=== PATIENT | male | born 1935 | race Caucasian/White ===

== ENCOUNTER 2018-04-08 10:36 | Inpatient (IN) ==
[2018-04-08] MEDS ORDERED: 0.9 % SODIUM CHLORIDE 1,000 ML IV ONE (11:02)
[2018-04-08 11:28] LABS: Basophils # (Auto) 0.1 K/mcL (0.0-0.3); Basophils % (Auto) 0.1 % (0.0-2.0); Eosinophils # (Auto) 0.1 K/mcL (0.0-0.7); Eosinophils % (Auto) 0.1 % (0.0-7.0); Lymphocytes # (Auto) 67.4 K/mcL (1.5-4.8); Lymphocytes % (Auto) 80.3 % (15.5-49.0); Mean Cell Volume 85.2 fL (80.0-100.0); Mean Corpuscular HGB Conc 30.9 g/dL (31.0-36.0); Monocytes # (Auto) 8.8 K/mcL (0.1-0.9); Monocytes % (Auto) 10.5 % (1.0-12.0); Platelet Count 164 K/mcL (140-440); RBC 4.72 M/mcL (4.50-5.90); Red Cell Distribution Width 19.9 % (11.5-14.5)
--- NOTE | 2018-04-08 11:28 | Emergency Department Note ---
Male Urogenital HPI - General Chief complaint: Urogenital-Male Stated complaint: urinary retention Time Seen by Provider: 04/08/18 10:44 Source: patient Mode of arrival: ambulatory Limitations: no limitations - History of Present Illness HPI Narrative: This patient has not had a good urination in the last 3 or 4 days. He had colon cancer surgery earlier in March and his creatinine had time was 1.4. Today is 3.9 his BUN is 119. He certainly may be prerenal. His potassium was 6.0. He really has no other symptoms. - Related Data Home Medications Medication Instructions Recorded Confirmed Levothyroxine [Synthroid] 100 mcg PO DAILY 08/15/15 04/08/18 Lisinopril [Zestril] 40 mg PO DAILY 08/15/15 04/08/18 Allopurinol [Zyloprim] 100 mg PO HS 04/08/18 04/08/18 Brimonidine Tartrate/Timolol 1 drp BOTH EYES Q12H 04/08/18 04/08/18 [Combigan Eye Drops] Ferrous Sulfate [High Potency Iron] 65 mg PO QDAY 04/08/18 04/08/18 Furosemide [Lasix] 20 mg PO QDAY PRN 04/08/18 04/08/18 Metoprolol Tartrate [Lopressor] 50 mg PO QDAY 04/08/18 04/08/18 Multivit-Min/Iron/Vitamin K [Adult 1 each PO QDAY 04/08/18 04/08/18 Multivitamin-Iron Tablet] Potassium Gluconate 99 mg PO QDAY 04/08/18 04/08/18 Sodium Chloride Nasal [[place] Nasal] 1 spray JOVANA Q12HP 04/08/18 04/08/18 Zinc Acetate [Galzin] 25 mg PO QDAY 04/08/18 04/08/18 amLODIPine [Norvasc] 10 mg PO ONCE 04/08/18 04/08/18 diphenhydrAMINE HCL/ZINC ACET 1 gm TP QDAY PRN 04/08/18 04/08/18 [Itch Relief Cream] Allergies Allergy/AdvReac Type Severity Reaction Status Date / Time Penicillins Allergy Intermediate Rash Verified 04/08/18 10:41 Review of Systems All systems ED: reviewed and negative except as stated. Past Medical History - Past Medical History ON LICENSE OF [facility] Narrative: Medical History (Last Reviewed 02/10/18 @ 11:28 by Shell Woodall DO) Chronic lymphocytic leukemia (Acute) Sinusitis (Acute) Bronchitis (Acute) Medical history: Reports: cancer (colon, bladder), CHF, GERD, hypertension, kidney stones, other (pacemaker, colitis) Surgical history ED: Reports: appendectomy, cataract, cholecystectomy, pa cemaker/AICD, tonsillectomy - Social History smoking status: Former smoker Physical Exam Limitations: no limitations General appearance: alert Head: atraumatic Eye: Present: normal appearance ENT: normal exam Neck: Present: normal inspection Chest: Present: normal inspection Respiratory: Present: normal lung sounds bilaterally Cardiovascular: Present: regular rate, normal rhythm, normal heart sounds Abdominal: Present: soft. Absent: distention, tenderness Neurological: Present: alert Psychiatric: Present: normal affect Skin: Present: warm, dry, intact Course Vital Signs Temperature 96.5 F L 04/08/18 10:36 Pulse Rate 84 04/08/18 10:36 Respiratory Rate 18 04/08/18 10:36 Blood Pressure 111/56 04/08/18 10:36 Pulse Oximetry (%) 98 04/08/18 10:36 Temperature 96.5 F L 04/08/18 10:36 Pulse Rate 60 04/08/18 13:31 Respiratory Rate 19 04/08/18 13:31 Blood Pressure 105/46 04/08/18 13:31 Pulse Oximetry (%) 100 04/08/18 13:31 Urogenital-Male - MDM Narrative Medical decision making narrative: I discussed the case with Dr. Doan and Dr. Kenyon the oncologist in all agree this patient can be admitted here for further evaluation. - Lab Data Lab results reviewed: Yes I reviewed the patient's lab results. Result diagrams: 04/08/18 10:55 04/08/18 10:55 Lab Results 04/08/18 04/08/18 04/08/18 Range/Units 10:53 10:53 10:53 WBC (4.5-11.0) K/mcL RBC (4.50-5.90) M/mcL Hgb (13.5-16.5) g/dL Hct (41.0-55.0) % POC Hct (41.0-55.0) % MCV (80.0-100.0) fL MCH (26.0-34.0) pg MCHC (31.0-36.0) g/dL RDW (11.5-14.5) % Plt Count (140-440) K/mcL MPV (7.4-10.4) fL Gran % (38.0-78.0) % Lymph % (Auto) (15.5-49.0) % [place] % (Auto) (1.0-12.0) % Eos % (Auto) (0.0-7.0) % Baso % (Auto) (0.0-2.0) % Gran # (1.8-8.0) K/mcL Lymph # (Auto) (1.5-4.8) K/mcL [place] # (Auto) (0.1-0.9) K/mcL Eos # (Auto) (0.0-0.7) K/mcL Baso # (Auto) (0.0-0.3) K/mcL Total Counted 100 Seg Neutrophils % 7 L (38-78) % Band Neutrophils % Not Reportable Lymphocytes % 90 H (15-49) % Monocytes % (Manual) 3 (1-12) % Platelet Estimate Normal (NORMAL) RBC Morphology Abnorm A (NORMAL) Anisocytosis 1+ A (NONE SEEN) Ovalocytes 1+ A (NONE SEEN) Smear Path Review VBG Lactic Acid (0.5-2.0) mmol/L POC Sodium (133-145) mmol/L Sodium (133-145) mmol/L POC Potassium (3.3-5.1) mmol/L Potassium (3.3-5.1) mmol/L POC Chloride (96-108) mmol/L Chloride (96-108) mmol/L Carbon Dioxide (22-30) mmol/L POC Total CO2 (22-30) mmol/L Anion Gap (8-16) POC BUN (8-23) mg/dl BUN (8-23) mg/dl Creatinine (0.7-1.2) mg/dl POC Creatinine (0.7-1.2) mg/dl GFR Calculation Glucose (70-105) mg/dL POC Glucose (70-105) mg/dL Uric Acid (2.5-8.0) mg/dL Calcium (8.6-10.4) mg/dl POC WB Ioniz Calcium (1.16-1.32) mmol/L Phosphorus 7.3 H* (2.7-4.5) mg/dL Total Bilirubin (0.0-1.0) mg/dL AST (0-37) U/l ALT (0-40) U/l Alkaline Phosphatase (39-117) U/L Lactate Dehydrogenase (94-250) U/L Total Protein (5.9-8.4) gm/dL Albumin (3.2-5.2) gm/dL Globulin (2.2-3.7) gm/dL Albumin/Globulin Ratio (1.0-2.3) 04/08/18 04/08/18 04/08/18 Range/Units 10:53 10:55 10:55 WBC 83.9 H* (4.5-11.0) K/mcL RBC 4.72 (4.50-5.90) M/mcL Hgb 12.4 L (13.5-16.5) g/dL Hct 40.3 L (41.0-55.0) % POC Hct 38.0 L (41.0-55.0) % MCV 85.2 (80.0-100.0) fL MCH 26.3 (26.0-34.0) pg MCHC 30.9 L (31.0-36.0) g/dL RDW 19.9 H (11.5-14.5) % Plt Count 164 (140-440) K/mcL MPV 8.9 (7.4-10.4) fL Gran % 9.0 L (38.0-78.0) % Lymph % (Auto) 80.3 H (15.5-49.0) % [place] % (Auto) 10.5 (1.0-12.0) % Eos % (Auto) 0.1 (0.0-7.0) % Baso % (Auto) 0.1 (0.0-2.0) % Gran # 7.6 (1.8-8.0) K/mcL Lymph # (Auto) 67.4 H (1.5-4.8) K/mcL [place] # (Auto) 8.8 H (0.1-0.9) K/mcL Eos # (Auto) 0.1 (0.0-0.7) K/mcL Baso # (Auto) 0.1 (0.0-0.3) K/mcL Total Counted Seg Neutrophils % (38-78) % Band Neutrophils % Lymphocytes % (15-49) % Monocytes % (Manual) (1-12) % Platelet Estimate (NORMAL) RBC Morphology (NORMAL) Anisocytosis (NONE SEEN) Ovalocytes (NONE SEEN) Smear Path Review VBG Lactic Acid (0.5-2.0) mmol/L POC Sodium 131 L (133-145) mmol/L Sodium 128 L (133-145) mmol/L POC Potassium 6.0 H* (3.3-5.1) mmol/L Potassium 6.4 H* (3.3-5.1) mmol/L POC Chloride 109 H (96-108) mmol/L Chloride 100 (96-108) mmol/L Carbon Dioxide 12 L (22-30) mmol/L POC Total CO2 13 L (22-30) mmol/L Anion Gap 16.0 (8-16) POC BUN 119 H* (8-23) mg/dl BUN 115 H* (8-23) mg/dl Creatinine 3.5 H (0.7-1.2) mg/dl POC Creatinine 3.9 H (0.7-1.2) mg/dl GFR Calculation 15 Glucose 109 H (70-105) mg/dL POC Glucose 108 H (70-105) mg/dL Uric Acid 8.9 H (2.5-8.0) mg/dL Calcium 10.3 (8.6-10.4) mg/dl POC WB Ioniz Calcium 1.45 H (1.16-1.32) mmol/L Phosphorus (2.7-4.5) mg/dL Total Bilirubin 0.3 (0.0-1.0) mg/dL AST 27 (0-37) U/l ALT 26 (0-40) U/l Alkaline Phosphatase 95 (39-117) U/L Lactate Dehydrogenase (94-250) U/L Total Protein 6.9 (5.9-8.4) gm/dL Albumin 4.3 (3.2-5.2) gm/dL Globulin 2.6 (2.2-3.7) gm/dL Albumin/Globulin Ratio 1.7 (1.0-2.3) 04/08/18 04/08/18 Range/Units 11:45 11:52 WBC (4.5-11.0) K/mcL RBC (4.50-5.90) M/mcL Hgb (13.5-16.5) g/dL Hct (41.0-55.0) % POC Hct (41.0-55.0) % MCV (80.0-100.0) fL MCH (26.0-34.0) pg MCHC (31.0-36.0) g/dL RDW (11.5-14.5) % Plt Count (140-440) K/mcL MPV (7.4-10.4) fL Gran % (38.0-78.0) % Lymph % (Auto) (15.5-49.0) % [place] % (Auto) (1.0-12.0) % Eos % (Auto) (0.0-7.0) % Baso % (Auto) (0.0-2.0) % Gran # (1.8-8.0) K/mcL Lymph # (Auto) (1.5-4.8) K/mcL [place] # (Auto) (0.1-0.9) K/mcL Eos # (Auto) (0.0-0.7) K/mcL Baso # (Auto) (0.0-0.3) K/mcL Total Counted Seg Neutrophils % (38-78) % Band Neutrophils % Lymphocytes % (15-49) % Monocytes % (Manual) (1-12) % Platelet Estimate (NORMAL) RBC Morphology (NORMAL) Anisocytosis (NONE SEEN) Ovalocytes (NONE SEEN) Smear Path Review VBG Lactic Acid < 0.2 L (0.5-2.0) mmol/L POC Sodium (133-145) mmol/L Sodium (133-145) mmol/L POC Potassium (3.3-5.1) mmol/L Potassium (3.3-5.1) mmol/L POC Chloride (96-108) mmol/L Chloride (96-108) mmol/L Carbon Dioxide (22-30) mmol/L POC Total CO2 (22-30) mmol/L Anion Gap (8-16) POC BUN (8-23) mg/dl BUN (8-23) mg/dl Creatinine (0.7-1.2) mg/dl POC Creatinine (0.7-1.2) mg/dl GFR Calculation Glucose (70-105) mg/dL POC Glucose (70-105) mg/dL Uric Acid (2.5-8.0) mg/dL Calcium (8.6-10.4) mg/dl POC WB Ioniz Calcium (1.16-1.32) mmol/L Phosphorus (2.7-4.5) mg/dL Total Bilirubin (0.0-1.0) mg/dL AST (0-37) U/l ALT (0-40) U/l Alkaline Phosphatase (39-117) U/L Lactate Dehydrogenase 251 H (94-250) U/L Total Protein (5.9-8.4) gm/dL Albumin (3.2-5.2) gm/dL Globulin (2.2-3.7) gm/dL Albumin/Globulin Ratio (1.0-2.3) - Radiology Data Radiology results reviewed: Yes I reviewed the patient's radiology results. Disposition Pt seen by SKOOG MACHINE OPERATOR/PA only: No Clinical Impression: Acute renal failure Disposition: Xfer As Inpt ([facility]) Condition: Fair Referrals: Juan Gu MD [Primary Care Provider] - Time of Disposition: 14:06
[2018-04-08 11:57] LABS: ALT/SGPT 26 U/l (0-40); Albumin 4.3 gm/dL (3.2-5.2); Albumin/Globulin Ratio 1.7 (1.0-2.3); Alkaline Phosphatase 95 U/L (39-117); Blood Urea Nitrogen 115 mg/dl (8-23)
--- NOTE | 2018-04-08 12:05 | Nephrology Consult Note ---
History of Present Illness - Reason for Consult Patient information: Note initiated : 04/08/18 at 12:03 pm Abdiel Cooley is an 82-year-old male presented to ED on 04/08/18 for decreased urination. Consult date: 04/08/18 acute renal failure, chronic renal failure, hyponatremia, hyperkalemia, me tabolic acidosis Requesting physician: Michael Conroy - Chief Complaint Decreased urination - History of Present Illness Abdiel Cooley is an 82-year-old male with coronary artery disease by calcifications on CT, hypertension, chronic lymphocytic leukemia and colon cancer s/p recent surgery presented to Ed on 04/08/18 for decreased urination. He reports decreased oral intake in the past 3-4 days. Nephrology consultation was requested for acute kidney injury. Review of Systems Constitutional: lethargy, weakness Nose, mouth and throat: no nasal congestion, no sore throat Cardiovascular: no chest pain, no palpatations Respiratory: no cough, no dyspnea Gastrointestinal: no abdominal pain, no diarrhea Genitourinary: difficulty urinating, no hematuria Musculoskeletal: no back pain, no neck pain Integumentary: no rash, no wounds Neurological: no confusion, no focal weakness Psychiatric: no anxiety, no panic attacks Endocrine: no cold intolerance, no heat intolerance Hematologic/Lymphatic: no easy bleeding, no easy bruising Allergic/Immunologic: no tongue swelling, no uticaria Past History Past medical history: Medical History (Last Reviewed 02/10/18 @ 11:28 by Shell Woodall DO) Chronic lymphocytic leukemia (Acute) Sinusitis (Acute) Bronchitis (Acute) Past surgical history: Colon cancer surgery Past family history: No history of kidney disease in family members Past social history: Former smoker Medications and Allergies Home Medications Medication Instructions Recorded Confirmed Type Levothyroxine [Synthroid] 100 mcg PO DAILY 08/15/15 04/08/18 History Lisinopril [Zestril] 40 mg PO DAILY 08/15/15 04/08/18 History Allopurinol [Zyloprim] 100 mg PO HS 04/08/18 04/08/18 History Brimonidine Tartrate/Timolol 1 drp BOTH EYES Q12H 04/08/18 04/08/18 History [Combigan Eye Drops] Ferrous Sulfate [High Potency Iron] 65 mg PO QDAY 04/08/18 04/08/18 History Furosemide [Lasix] 20 mg PO QDAY PRN 04/08/18 04/08/18 History Metoprolol Tartrate [Lopressor] 50 mg PO QDAY 04/08/18 04/08/18 History Multivit-Min/Iron/Vitamin K [Adult 1 each PO QDAY 04/08/18 04/08/18 History Multivitamin-Iron Tablet] Potassium Gluconate 99 mg PO QDAY 04/08/18 04/08/18 History Sodium Chloride Nasal [[place] Nasal] 1 spray JOVANA Q12HP 04/08/18 04/08/18 History Zinc Acetate [Galzin] 25 mg PO QDAY 04/08/18 04/08/18 History amLODIPine [Norvasc] 10 mg PO ONCE 04/08/18 04/08/18 History diphenhydrAMINE HCL/ZINC ACET 1 gm TP QDAY PRN 04/08/18 04/08/18 History [Itch Relief Cream] Allergies Allergy/AdvReac Type Severity Reaction Status Date / Time Penicillins Allergy Intermediate Rash Verified 04/08/18 10:41 Exam - Vital Signs Vital signs: Temp Pulse Resp BP Pulse Ox 96.5 F L 62 16 93/50 100 04/08/18 10:36 04/08/18 11:18 04/08/18 11:18 04/08/18 11:18 04/08/18 11:18 - General Appearance General appearance: appears started age, fatigue EENT: mucous membranes dry Neck: supple Respiratory: clear Cardiology: no edema Gastrointestinal: no tenderness Integumentary: warm and dry Neurologic: no focal deficit, alert and oriented x3 Musculoskeletal: no deformities Psychiatric: mood/affect appropriate, cooperative Results - Lab Results 04/08/18 10:55 04/08/18 10:55 Most recent lab results Calcium 10.3 mg/dl (8.6-10.4) 04/08/18 10:55 Assessment and Plan (1) Acute on chronic renal failure Abdiel Cooley is an 82-year-old male with coronary artery disease by calcifications on CT, hypertension, chronic lymphocytic leukemia and colon cancer s/p recent surgery presented to Ed on 04/08/18 for decreased urination. Nephrology consultation was requested for acute kidney injury. Acute kidney injury on chronic kidney disease stage 3 with hyperkalemia, metabolic acidosis and hyponatremia, likely associated with dehydration associated with ACEI and diuretics, present on arrival. Leukocytosis associated with CLL could be due to dehydration. Tumor lysis syndrome considered and being discussed with his oncologist. Work up: Renal US on 04/08/18: Mildly echogenic renal parenchyma bilaterally which may be seen with chronic medical renal disease. Splenomegaly which has remained stable since a prior abdomen CT done on 12/18/17. Previous work up: CT Abdomen and Pelvis without contrast on 12/18/17: Small cysts in both kidn eys are stable no significant renal abnormality. Recommendations: Sodium Bicarbonate 150 mEq in 1L D5W at 200 ml/hour x 1 L then 100 ml/hour x 1 L for hyperchloremic metabolic acidosis, hyperkalemia and hyponatremia. Urinalysis pending. No need for urgent acute hemodialysis, unless hyperkalemia does not improve with medical treatment. Avoid NSAIDs, nephrotoxic medications and IV contrast. Monitor BMP and urine output. Status: Acute Priority: High Qualifiers: Acute renal failure type: unspecified Chronic kidney disease stage: stage 3 (moderate) Qualified Code(s): N17.9 - Acute kidney failure, unspecified; N18.3 - Chronic kidney disease, stage 3 (moderate) (2) Hyperkalemia Please see above Status: Acute Priority: High (3) Hyponatremia Please see above Status: Acute Priority: Medium (4) Hyperchloremic metabolic acidosis Please see above Status: Acute Priority: High
[2018-04-08 12:43] LABS: Anisocytosis 1+ (NONE SEEN); Lymphocytes % 90 % (15-49); Monocytes % (Manual) 3 % (1-12); Ovalocytes 1+ (NONE SEEN); Platelet Estimate NORMAL (NORMAL); RBC Morphology ABNORM (NORMAL); Segmented Neutrophils % 7 % (38-78)
--- NOTE | 2018-04-08 12:46 | Ultrasound Report ---
History: Elevated serum BUN/creatinine and creatinine FINDINGS: The right kidney measures 5.5 x 5.8 x 10.2 cm and the left measures 4.7 x 5.2 x 10.7 cm. There is mild increased echogenicity of the renal parenchyma bilaterally. There is no apparent loss of renal cortex. Small simple cysts are present in the lower poles of both kidneys. Larger is in the left kidney and measures 9 x 11 mm. No solid mass, calculus or hydronephrosis are present in either kidney. Doppler shows flow urine through both ureters into the bladder. The bladder contained 59 cc of urine. He was unable to void at this time. The spleen is mild to moderately enlarged and measures 15.5 cm in length. The spleen is homogeneous. IMPRESSION: Mildly echogenic renal parenchyma bilaterally which may be seen with chronic medical renal disease. Splenomegaly which has remained stable since a prior abdomen CT done on 12/18/17 Interpreted and Authenticated by: Eduardo Chua 04/08/18
[2018-04-08] MEDS ORDERED: SODIUM BICARBONATE VIAL 150 MEQ in DEXTROSE 5% IN WATER 850 ML IV SCH ×4 (13:00→19:00)
--- NOTE | 2018-04-08 14:15 | Internal Med History&Physical ---
Medical - H&P: HPI Patient information: Note initiated : 04/08/18 at 2:10 pm Service Date, if different from initiated Date: [] Patient: Abdiel Cooley 82 y/o M admitted on for Urinary Retention. Chief Complaint: [] History of present illness: Mr. Cooley is a 82 year old M who had colon cancer surgery 2 weeks ago, was at a rehab center for a week and then home for a week, comes to this hospital for evaluation of weakness, dizziness, not making much urine. The patient had colon cancer surgery done, I believe he had a cancerous adenomatous polyp without any metastases. The surgery went well, postoperatively the patient notes he was doing well for a few days and then his condition started to worsen, he has had decreased appetite and decreased oral intake, he is not been eating well, he has had nausea as well as diarrhea. He notes the diarrhea may have been going throughout the perioperative. The patient after going home his condition continued to worsen, notes that he has been getting progressively dizzy and fatigued, does not remember when he passed a good bladder full of urine, given his progressive weakness he came to the hospital for further evaluation. In the emergency room on presentation patient was hemodynamically stable, labs showed WBC count of 82,900, was 20,500 during surgery 2 weeks ago, hemoglobin 12.4 platelets 164. Patient does have history of CLL. Lactic acid is less than 0.2, phosphorus 7.3 uric acid 8.9, LDH 251, calcium 10.3, sodium 164 potassium 6.4 bicarbonate 12 creatinine 3.5 BUN 115 glucose 109 peripheral smear done shows mature lymphocytes no blast cells noted. Given sudden worsening in the patient's WBC count as well as presentation as oliguric renal failure with hyperkalemia hyperphosphatemia and also some elevation in uric acid. Oncologist construction sales representative Dr Tavarez was consulted on this patient by the ED who did not feel that the patient needed to be transferred to [facility] for further evaluation. I also spoke with Dr. Jefferson as well as Dr. Peng who is the patient's primary oncologist. I expressed my concern for possible tumor lysis syndrome in this patient, Dr. Peng noted that he did not felt the patient has tumor lysis syndrome at this time. Mostly his WBC count is reactive in nature. Patient is being admitted to the hospital for further management Dr. Mallory the assistant fitness manager has already evaluated the patient. All systems: reviewed and no additional remarkable complaints except as stated (as per HPI rest negative.) Medical - H&P: PMH Medical history: Medical History (Last Reviewed 02/10/18 @ 11:28 by Shell Woodall DO) PAST MEDICAL HISTORY: 1. Transverse colon cancer stage I 02/2018 as above. 2. Superficial bladder cancer status post cystoscopic resection, no recurrence. 3. Prostate cancer in the past, status post radical prostatectomy. PSA is monitored by his PCP. 4. Chronic leukemia with stable elevated white blood cells and splenomegaly, but no progression over 20 years, most likely CLL. 5. Hypertension and a pacemaker in place for an arrhythmia, but otherwise no other heart disease, diabetes, stroke, otherwise healthy. Pertinent family history: His mother and father both had heart disease. His father had lip cancer and his brother had kidney cancer. No colon cancer. Social history: ex smoker social etoh Medical - H&P: Meds Home Medications Medication Instructions Recorded Confirmed Type Levothyroxine [Synthroid] 100 mcg PO DAILY 08/15/15 04/08/18 History Lisinopril [Zestril] 40 mg PO DAILY 08/15/15 04/08/18 History Allopurinol [Zyloprim] 100 mg PO HS 04/08/18 04/08/18 History Brimonidine Tartrate/Timolol 1 drp BOTH EYES Q12H 04/08/18 04/08/18 History [Combigan Eye Drops] Ferrous Sulfate [High Potency Iron] 65 mg PO QDAY 04/08/18 04/08/18 History Furosemide [Lasix] 20 mg PO QDAY PRN 04/08/18 04/08/18 History Metoprolol Tartrate [Lopressor] 50 mg PO QDAY 04/08/18 04/08/18 History Multivit-Min/Iron/Vitamin K [Adult 1 each PO QDAY 04/08/18 04/08/18 History Multivitamin-Iron Tablet] Potassium Gluconate 99 mg PO QDAY 04/08/18 04/08/18 History Sodium Chloride Nasal [[place] Nasal] 1 spray JOVANA Q12HP 04/08/18 04/08/18 History Zinc Acetate [Galzin] 25 mg PO QDAY 04/08/18 04/08/18 History amLODIPine [Norvasc] 10 mg PO ONCE 04/08/18 04/08/18 History diphenhydrAMINE HCL/ZINC ACET 1 gm TP QDAY PRN 04/08/18 04/08/18 History [Itch Relief Cream] Allergies Allergy/AdvReac Type Severity Reaction Status Date / Time Penicillins Allergy Intermediate Rash Verified 04/08/18 10:41 Medical - H&P: Exam - Constitutional Vitals: Temp Pulse Resp BP Pulse Ox 96.5 F L 60 19 105/46 100 04/08/18 10:36 04/08/18 13:31 04/08/18 13:31 04/08/18 13:31 04/08/18 13:31 Exam: GENERAL: The patient is a well-developed, well-nourished in no apparent distress. Is alert and oriented x3. VITAL SIGNS: Reviewed and as noted elsewhere. HEENT: Head is normocephalic and atraumatic. Extraocular muscles are intact. Pupils are equal, round, and reactive to light. Nares appeared normal. Mouth appears any without lesions. Mucous membranes are dry. NECK: Normal to inspection, Supple, No lymphadenopathy or thyromegaly. LUNGS: Air entry equal on both sides, no wheezing, crackles or rhonchi noted. No accessory muscles of respiration HEART: Regular rate and rhythm normal, S1 and S2 heard, no Gallop, S3 or Rub Noted, No Gross murmur heard. ABDOMEN: Soft, nontender, and nondistended. Positive bowel sounds. No hepatosplenomegaly was noted. EXTREMITIES: No cyanosis, clubbing, rash, lesions or edema. NEUROLOGIC: Cranial nerves II through XII are grossly intact. Motor and Sensory System Grossly Intact PSYCHIATRIC: Normal affect, Normal Mood. Appropriate Behavior. SKIN: Dry skin, dehydrated, No ulceration or wounds noted, No jaundice, No rash noted. Medical - H&P: Reslt - Labs CBC & Chem 7: 04/08/18 10:55 04/08/18 10:55 Labs: Short CBC 04/08/18 Range/Units 10:55 WBC 83.9 H* (4.5-11.0) K/mcL Hgb 12.4 L (13.5-16.5) g/dL Hct 40.3 L (41.0-55.0) % Plt Count 164 (140-440) K/mcL BMP 04/08/18 10:55 Sodium 128 L Potassium 6.4 H* Chloride 100 Carbon Dioxide 12 L BUN 115 H* Creatinine 3.5 H Glucose 109 H Calcium 10.3 Liver Function 04/08/18 Range/Units 10:55 Total Bilirubin 0.3 (0.0-1.0) mg/dL AST 27 (0-37) U/l ALT 26 (0-40) U/l Alkaline Phosphatase 95 (39-117) U/L Albumin 4.3 (3.2-5.2) gm/dL Medical - H&P: A/P - Narrative A/P Narrative: A/P Acute renal failure NOn agion gap metabolic acidosis Diarrhea colon cancer s/p Surgery Recent colon surgery CLL s/p Pacemaker HTN Hyperkalemia A/P Patient seen by Dr Mallory, management of renal failure as per him, not needing dialysis at this time I reviewed case with Pt oncologist who is not concerned about tumor lyusis check cdiff given diarrhea treat Hyperkalemia medically Resume home meds hold lasix, potassium supplement and lisinopril for now. IV fluids for renal failure DVT hep sq Diet Renal Full code.
[2018-04-08] MEDS ORDERED: SODIUM POLYSTYRENE SULFONATE 15 GM/60 ML SUSPENSION PO ONE (14:51)
[2018-04-08] MEDS ORDERED: ONDANSETRON 4 MG/2 ML VIAL IV PRN (14:51)
[2018-04-08] MEDS ORDERED: DEXTROSE 50% 50 ML VIAL IV ONE (14:51)
[2018-04-08] MEDS ORDERED: CALCIUM GLUCONATE 7 MEQ in DEXTROSE 5% IN WATER 50 ML IV ONE (14:51)
[2018-04-08] MEDS ORDERED: INSULIN REGULAR, HUMAN 1 UNIT/0.01 ML UNIT IV ONE (14:51)
[2018-04-08] MEDS ORDERED: ALBUTEROL SULFATE 5 MG/ML NEB SOLUTION BOTTLE NEB ONE (14:51)
[2018-04-08] MEDS ORDERED: NALOXONE HCL 0.4 MG/ML VIAL IV PRN (14:51)
[2018-04-08] MEDS ORDERED: DIPHENHYDRAMINE HCL TOPICAL PRN (15:15)
[2018-04-08] MEDS ORDERED: ZINC ACET TOPICAL PRN (15:15)
[2018-04-08] MEDS ORDERED: ALBUTEROL SULFATE 2.5 MG/3 ML NEBULIZER NEB ONE (16:00)
--- NOTE | 2018-04-08 16:18 | XRay Report ---
HISTORY: Shortness of breath FINDINGS: The lungs are clear and normally expanded. The heart size is within upper limits of normal. There is a dual-chamber pacemaker. No congestive heart failure or pleural effusion are present. There has been little change since 11/26/15. IMPRESSION: Normal exam Interpreted and Authenticated by: Eduardo Chua 04/08/18
[2018-04-08] MEDS: 0.9 % SODIUM CHLORIDE 10 ML SYRINGE IV SCH ×2 (16:19→20:24)
[2018-04-08] MEDS: ACETAMINOPHEN 325 MG TABLET PO PRN (18:01)
[2018-04-08 18:20] LABS: Appearance,Urine CLEAR; Bilirubin,Urine NEG (NEG); Color,Urine YELLOW; Glucose,Urine (UA) NEGATIVE (NEG); Leukocyte Esterase,Urine NEG /uL (NEG); Protein,Urine NEG (NEG); Specific Gravity,Urine 1.014 (1.000-1.035); Urine Blood NEG mg/dL (<0.03); Urobilinogen,Urine NEG (NEG)
[2018-04-08 19:07] LABS: ALT/SGPT 23 U/l (0-40); Albumin/Globulin Ratio 1.8 (1.0-2.3); Alkaline Phosphatase 84 U/L (39-117); Bilirubin,Direct < 0.2 mg/dL (0.0-0.3); Blood Urea Nitrogen 109 mg/dl (8-23); Gamma Glutamyl Transpeptidase 13 U/L (8-61); Uric Acid 8.4 mg/dL (2.5-8.0)
[2018-04-08] MEDS: ALLOPURINOL 100 MG TABLET PO SCH (20:24)
[2018-04-08] MEDS: HEPARIN 5,000 UNIT/ML VIAL SQ SCH (20:24)
[2018-04-08] MEDS: BRIMONIDINE TARTRATE OU SCH (20:25)
[2018-04-08] MEDS: TIMOLOL OU SCH (20:25)
[2018-04-08] MEDS: DEXTROSE 5%-LR 1,000 ML IV SCH (21:26)
[2018-04-08] MEDS: VANCOMYCIN ORAL SOL 1,000 MG/10 ML BOTTLE PO SCH (23:54)
[2018-04-09 05:14] LABS: Basophils # (Auto) 0.1 K/mcL (0.0-0.3); Basophils % (Auto) 0.2 % (0.0-2.0); Eosinophils # (Auto) 0 K/mcL (0.0-0.7); Eosinophils % (Auto) 0 % (0.0-7.0); Granulocytes % (Auto) 6.5 % (38.0-78.0); Lymphocytes # (Auto) 44.3 K/mcL (1.5-4.8); Lymphocytes % (Auto) 90.5 % (15.5-49.0); Mean Cell Volume 83.1 fL (80.0-100.0); Mean Corpuscular HGB Conc 32.1 g/dL (31.0-36.0); Monocytes # (Auto) 1.4 K/mcL (0.1-0.9); Monocytes % (Auto) 2.8 % (1.0-12.0); Platelet Count 122 K/mcL (140-440); Red Cell Distribution Width 19.5 % (11.5-14.5)
[2018-04-09 05:36] LABS: ALT/SGPT 20 U/l (0-40); Albumin 3.7 gm/dL (3.2-5.2); Albumin/Globulin Ratio 2.1 (1.0-2.3); Alkaline Phosphatase 74 U/L (39-117); Bilirubin,Direct < 0.2 mg/dL (0.0-0.3); Blood Urea Nitrogen 105 mg/dl (8-23); Gamma Glutamyl Transpeptidase 12 U/L (8-61); Uric Acid 8.1 mg/dL (2.5-8.0)
[2018-04-09] MEDS: VANCOMYCIN ORAL SOL 1,000 MG/10 ML BOTTLE PO SCH ×4 (05:44→23:40)
[2018-04-09] MEDS: 0.9 % SODIUM CHLORIDE 10 ML SYRINGE IV SCH ×3 (05:44→20:42)
--- NOTE | 2018-04-09 06:45 | Nephrology Progress Note ---
Subjective Patient information: Note initiated : 04/09/18 at 6:42 am Patient: Abdiel Cooley 82 y/o M admitted on 04/08/18 for Urinary Retention. Chief Complaint: Decreased urination Principal diagnosis: Acute kidney injury Pertinent ROS: Weakness No chest pain No abdominal pain No hematuria Objective - Vital Signs Vital signs: Vital Signs Temp Pulse Pulse Resp BP BP Pulse Ox 04/09/18 06:01 97.0 F 68 10 L 117/56 100 04/09/18 04:01 96.8 F L 75 16 104/50 100 04/09/18 02:07 97.0 F 67 17 93/45 100 04/09/18 02:00 100 04/09/18 00:04 96.7 F L 59 L 21 104/49 100 04/08/18 22:11 60 18 99 04/08/18 22:03 64 18 88/49 98 04/08/18 20:01 96.8 F L 60 17 101/46 100 04/08/18 19:01 61 14 110/41 100 04/08/18 18:21 97 F 61 17 110/67 100 04/08/18 14:53 96.9 F L 13 107/51 100 04/08/18 14:51 96.9 F L 14 107/51 100 04/08/18 14:40 96.9 F L 73 14 107/51 100 04/08/18 14:32 60 15 102/45 100 04/08/18 14:16 62 19 111/47 100 04/08/18 14:01 61 16 101/50 100 04/08/18 13:46 63 19 108/52 100 04/08/18 13:31 60 19 105/46 100 04/08/18 13:18 59 L 17 102/49 100 04/08/18 13:14 63 15 100 04/08/18 12:47 63 101/49 100 04/08/18 12:31 59 L 121/48 100 04/08/18 12:22 62 113/46 100 04/08/18 12:19 63 98 04/08/18 11:31 61 19 100/43 100 04/08/18 11:18 62 16 93/50 100 04/08/18 10:36 96.5 F L 84 18 111/56 98 Intake and Output 04/08/18 04/09/18 04/09/18 21:59 05:59 13:59 Intake Total 1055.0537 360 Output Total 610 1690 Balance 445.0537 -1330 Intake: IV 815.0537 Sodium Bicarbonate Vial 150 Meq 90 In Dextrose 5% in Water 850 ml @ 200 mls/hr IV Q5H [facility] Rx#: [id number] Oral 240 360 Output: Urine Catheter Amount 360 590 Urine/Stool Mix 250 Stool 1100 Other: Meal Dinner Percent of Meal Consumed 50% Feeding Ability Independent Urine Appearance Clear Clear Uretheral (Mojica) Clear Clear Urine Color Bright Yellow Bright Yellow Uretheral (Mojica) Bright Yellow Bright Yellow Stool Size Large Copious Stool Color Brown Brown Green Stool Consistency Liquid Liquid Watery # Bowel Movements 1 1 Weight 166 lb 3.2 oz Intake & Output: Intake & Output 04/08/18 04/09/18 04/09/18 21:59 05:59 13:59 Intake Total 1055.0537 360 Output Total 610 1690 Balance 445.0537 -1330 Weight 166 lb 3.2 oz Intake: IV 815.0537 Sodium Bicarbonate Vial 150 Meq 90 In Dextrose 5% in Water 850 ml @ 200 mls/hr IV Q5H [facility] Rx#: [id number] Oral 240 360 Output: Urine Catheter Amount 360 590 Urine/Stool Mix 250 Stool 1100 Other: Meal Dinner Percent of Meal Consumed 50% Feeding Ability Independent Urine Appearance Clear Clear Uretheral (Mojica) Clear Clear Urine Color Bright Yellow Bright Yellow Uretheral (Mojica) Bright Yellow Bright Yellow Stool Size Large Copious Stool Color Brown Brown Green Stool Consistency Liquid Liquid Watery # Bowel Movements 1 1 - General Appearance General appearance: appears started age, fatigue EENT: mucous membranes moist Neck: supple Respiratory: clear Cardiology: no edema Gastrointestinal: no tenderness Integumentary: warm and dry Neurologic: no focal deficit, alert and oriented x3 Musculoskeletal: no deformities Psychiatric: mood/affect appropriate, cooperative - Lab 04/09/18 03:35 04/09/18 03:35 Most recent lab results Calcium 9.4 mg/dl (8.6-10.4) 04/09/18 03:35 Phosphorus 5.1 mg/dL (2.7-4.5) H 04/09/18 03:35 Magnesium 1.9 mg/dL (1.6-2.5) 04/09/18 03:35 Assessment and Plan (1) Acute on chronic renal failure Abdiel Cooley is an 82-year-old male with coronary artery disease by calcifications on CT, hypertension, chronic lymphocytic leukemia and colon cancer s/p recent surgery presented to Ed on 04/08/18 for decreased urination. Nephrology consultation was requested for acute kidney injury. Acute kidney injury on chronic kidney disease stage 3 with initial hyperkalemia, metabolic acidosis and hyponatremia, likely associated with dehydration associated with ACEI and diuretics, present on arrival. Work up: Renal US on 04/08/18: Mildly echogenic renal parenchyma bilaterally which may be seen with chronic medical renal disease. Splenomegaly which has remained stable since a prior abdomen CT done on 12/18/17. Urinalysis on 04/08/18: Yellow, Clear, pH 6.0, SG 1.014, protein negative, occult blood negative, leukocyte esterase negative. Previous work up: CT Abdomen and Pelvis without contrast on 12/18/17: Small cysts in both kidneys are stable no significant renal abnormality. Progress: Urine output: 950 ml reported in the past 16 hours. Serum creatinine decreased from 3.5 to 2.6 in the past 16 hours. Metabolic acidosis, improved. Hyponatremia, resolved. Hyperkalemia, resolved. Recommendations: No need for acute hemodialysis. Avoid NSAIDs, nephrotoxic medications and IV contrast. Monitor BMP and urine output. Status: Acute Priority: High Qualifiers: Acute renal failure type: unspecified Chronic kidney disease stage: stage 3 (moderate) Qualified Code(s): N17.9 - Acute kidney failure, unspecified; N18.3 - Chronic kidney disease, stage 3 (moderate) (2) Hyperkalemia Status: Resolved Priority: High (3) Hyponatremia Status: Resolved Priority: Medium (4) Hyperchloremic metabolic acidosis Status: Acute Priority: Medium
[2018-04-09] MEDS: LEVOTHYROXINE 100 MCG TABLET PO SCH (09:13)
[2018-04-09] MEDS: SODIUM BICARBONATE VIAL 150 MEQ in DEXTROSE 5% IN WATER 850 ML IV SCH ×2 (09:14→19:05)
[2018-04-09] MEDS: TIMOLOL OU SCH ×2 (09:14→20:42)
[2018-04-09] MEDS: FERROUS SULFATE 325 MG TABLET PO SCH (09:14)
[2018-04-09] MEDS: HEPARIN 5,000 UNIT/ML VIAL SQ SCH ×2 (09:14→20:42)
[2018-04-09] MEDS: MULTIVIT,THER IRON,CA,FA & MIN 1 TABLET PO SCH (09:14)
[2018-04-09] MEDS: BRIMONIDINE TARTRATE OU SCH ×2 (09:14→20:42)
--- NOTE | 2018-04-09 13:46 | Internal Med Progress Note ---
Medical - PN: Subj Patient information: Note initiated : 04/09/18 at 1:43 pm Service Date, if different from initiated Date: [] Patient: Abdiel Cooley 82 y/o M admitted on 04/08/18 for Urinary Retention. Chief Complaint: [] Interval history: Mr. Cooley is a 82 year old M who had colon cancer surgery 2 weeks ago, was at a rehab center for a week and then home for a week, comes to this hospital for evaluation of weakness, dizziness, not making much urine. The patient had colon cancer surgery done, I believe he had a cancerous adenomatous polyp without any metastases. The surgery went well, postoperatively the patient notes he was doing well for a few days and then his condition started to worsen, he has had decreased appetite and decreased oral intake, he is not been eating well, he has had nausea as well as diarrhea. He notes the diarrhea may have been going throughout the perioperative. The patient after going home his condition continued to worsen, notes that he has been getting progressively dizzy and fatigued, does not remember when he passed a good bladder full of urine, given his progressive weakness he came to the hospital for further evaluation. In the emergency room on presentation patient was hemodynamically stable, labs showed WBC count of 82,900, was 20,500 during surgery 2 weeks ago, hemoglobin 12.4 platelets 164. Patient does have history of CLL. Lactic acid is less than 0.2, phosphorus 7.3 uric acid 8.9, LDH 251, calcium 10.3, sodium 164 potassium 6.4 bicarbonate 12 creatinine 3.5 BUN 115 glucose 109 peripheral smear done shows mature lymphocytes no blast cells noted. Given sudden worsening in the patient's WBC count as well as presentation as oliguric renal failure with hyperkalemia hyperphosphatemia and also some elevation in uric acid. Oncologist communications project manager Dr Tavarze was consulted on this patient by the ED who did not feel that the patient needed to be transferred to [facility] for further evaluation. I also spoke with Dr. Jefferson as well as Dr. Peng who is the patient's primary oncologist. I expressed my concern for possible tumor lysis syndrome in this patient, Dr. Peng noted that he did not felt the patient has tumor lysis syndrome at this time. Mostly his WBC count is reactive in nature. Patient is being admitted to the hospital for further management Dr. Mallory the magneto specialist has already evaluated the patient. 04/09 Pt seen examined, no acute overnight issues, tolerating po diet well, still has diarrhea cdiff is positive, on po vanco making urine, wbc trending down, renal function better, K is normal Pertinent ROS: Denies headache, dizziness Denies chest pain, palpitations Denies cough or shortness of breath Denies abdominal pain, nausea or vomiting. diarrhea present - Constitutional Vitals: Vital Signs Temp Pulse Resp BP Pulse Ox 97.3 F 68 15 106/43 98 04/09/18 12:01 04/09/18 08:08 04/09/18 13:20 04/09/18 13:00 04/09/18 12:01 Period Temp Pulse Resp BP Sys/Pinedo Pulse Ox Last 24 Hr 96.7 F-98.8 F 59-75 10-23 79-117/41-67 98-100 Intake and Output 04/08/18 04/09/18 04/09/18 21:59 05:59 13:59 Intake Total 1055.0537 360 120 Output Total 610 1690 460 Balance 445.0537 -1330 -340 Weight 166 lb 3.2 oz Intake & Output: Intake & Output 04/08/18 04/09/18 04/09/18 21:59 05:59 13:59 Intake Total 1055.0537 360 120 Output Total 610 1690 460 Balance 445.0537 -1330 -340 Weight 166 lb 3.2 oz Intake: IV 815.0537 Sodium Bicarbonate Vial 150 Meq 90 In Dextrose 5% in Water 850 ml @ 200 mls/hr IV Q5H [facility] Rx#: [id number] Oral 240 360 120 Output: Urine Catheter Amount 360 590 460 Urine/Stool Mix 250 Stool 1100 Other: Meal Dinner Breakfast Percent of Meal Consumed 50% 100% Feeding Ability Independent Assist with Tray Set Up Urine Appearance Clear Clear Clear Uretheral (Mojica) Clear Clear Clear Urine Color Bright Yellow Bright Yellow Pale Uretheral (Mojica) Bright Yellow Bright Yellow Pale Stool Size Large Copious Moderate Stool Color Brown Brown Brown Green Yellow Stool Consistency Liquid Liquid Liquid Watery # Bowel Movements 1 1 Exam: Constitutional; Afebrile, cooperative, alert, not in distress. Eyes- No icterus, , No periorbital swelling Ears- Ext ear normal, hearing normal to conversation. Neck- Midline trachea, supple Respiratory system: Air Entry equal on both sides, No crackles or wheezing, no rhonchi. CVS- Rate rhythm regular, S1,S2 heard, no gallop, no rub. Abdomen- Soft nontender abdomen, no organomegaly, no tenderness, no guarding or rigidity, COMMERCIAL DECORATOR- AOOx3, moving all extremities, no gross focal deficit noted. Medical - PN: Obj Da - Labs CBC & Chem 7: 04/09/18 03:35 04/09/18 03:35 Labs: Abnormal Lab Results 04/09/18 04/09/18 04/08/18 03:35 03:35 17:55 WBC 48.9 H* RBC 3.70 L Hgb 9.9 L Hct 30.8 L POC Hct MCHC RDW 19.5 H Plt Count 122 L Gran % 6.5 L Lymph % (Auto) 90.5 H Lymph # (Auto) 44.3 H [place] # (Auto) 1.4 H Seg Neutrophils % Lymphocytes % RBC Morphology Anisocytosis Ovalocytes VBG Lactic Acid POC Sodium Sodium 131 L POC Potassium Potassium 5.3 H POC Chloride Carbon Dioxide 16 L 15 L POC Total CO2 POC BUN BUN 105 H* 109 H* Creatinine 2.6 H 3.0 H POC Creatinine Glucose 118 H 157 H POC Glucose Uric Acid 8.1 H 8.4 H POC WB Ioniz Calcium Phosphorus 5.1 H 5.8 H Lactate Dehydrogenase Total Protein 5.5 L Globulin 1.8 L Triglycerides 196 H 209 H 04/08/18 04/08/18 04/08/18 11:52 11:45 10:55 WBC RBC Hgb Hct POC Hct 38.0 L MCHC RDW Plt Count Gran % Lymph % (Auto) Lymph # (Auto) [place] # (Auto) Seg Neutrophils % Lymphocytes % RBC Morphology Anisocytosis Ovalocytes VBG Lactic Acid < 0.2 L POC Sodium 131 L Sodium 128 L POC Potassium 6.0 H* Potassium 6.4 H* POC Chloride 109 H Carbon Dioxide 12 L POC Total CO2 13 L POC BUN 119 H* BUN 115 H* Creatinine 3.5 H POC Creatinine 3.9 H Glucose 109 H POC Glucose 108 H Uric Acid POC WB Ioniz Calcium 1.45 H Phosphorus Lactate Dehydrogenase 251 H Total Protein Globulin Triglycerides 04/08/18 04/08/18 04/08/18 10:55 10:53 10:53 WBC 83.9 H* RBC Hgb 12.4 L Hct 40.3 L POC Hct MCHC 30.9 L RDW 19.9 H Plt Count Gran % 9.0 L Lymph % (Auto) 80.3 H Lymph # (Auto) 67.4 H [place] # (Auto) 8.8 H Seg Neutrophils % Lymphocytes % RBC Morphology Anisocytosis Ovalocytes VBG Lactic Acid POC Sodium Sodium POC Potassium Potassium POC Chloride Carbon Dioxide POC Total CO2 POC BUN BUN Creatinine POC Creatinine Glucose POC Glucose Uric Acid 8.9 H POC WB Ioniz Calcium Phosphorus 7.3 H* Lactate Dehydrogenase Total Protein Globulin Triglycerides 04/08/18 10:53 WBC RBC Hgb Hct POC Hct MCHC RDW Plt Count Gran % Lymph % (Auto) Lymph # (Auto) [place] # (Auto) Seg Neutrophils % 7 L Lymphocytes % 90 H RBC Morphology Abnorm A Anisocytosis 1+ A Ovalocytes 1+ A VBG Lactic Acid POC Sodium Sodium POC Potassium Potassium POC Chloride Carbon Dioxide POC Total CO2 POC BUN BUN Creatinine POC Creatinine Glucose POC Glucose Uric Acid POC WB Ioniz Calcium Phosphorus Lactate Dehydrogenase Total Protein Globulin Triglycerides Meds: Medications Acetaminophen (Tylenol) 650 mg PO Q4-6HP PRN PRN Reason: PAIN/FEVER > 101 Last Admin: 04/08/18 18:01 Dose: 650 mg Documented by: Allopurinol (Zyloprim) 100 mg PO [facility] Last Admin: 04/08/18 20:24 Dose: 100 mg Documented by: Ferrous Sulfate (Ferrous Sulfate) 325 mg PO [facility] Last Admin: 04/09/18 09:14 Dose: 325 mg Documented by: Heparin Sodium (Porcine) (Heparin) 5,000 unit SQ Q12 [facility] Last Admin: 04/09/18 09:14 Dose: 5,000 unit Documented by: Sodium Bicarbonate 150 meq/ (Dextrose) 1,000 mls @ 100 mls/hr IV Q20H [facility] Last Admin: 04/09/18 09:14 Dose: 100 mls/hr Documented by: Iron Carb/Multivit/[place]/Folic Acid (Multivitamin W/Minerals) 1 tab PO DAILY [facility] Last Admin: 04/09/18 09:14 Dose: 1 tab Documented by: Levothyroxine Sodium (Synthroid) 100 mcg PO ACB [facility] Last Admin: 04/09/18 09:13 Dose: 100 mcg Documented by: Naloxone HCl (Narcan) 0.1 mg IV Q2MIN PRN PRN Reason: Opiate Reversal Ondansetron HCl (Zofran) 4 mg IV Q4-6HP PRN PRN Reason: Nausea And Vomiting Brimonidine Tartrate /Timolol [Combigan 0 .2%-0.5%] Ophthalmic Solution 1 dose OU Q12H [facility] Last Admin: 04/09/18 09:14 Dose: Not Given Documented by: Diphenhydramine Hcl/Zinc Acet [Gs Itch Relief Cream] 1 dose TOPICAL DAILYP PRN PRN Reason: Rash Sodium Chloride (Saline Flush) 10 ml IV Q8 [facility] Last Admin: 04/09/18 05:44 Dose: 10 ml Documented by: Vancomycin HCl (Vancomycin Oral Jazmyn) 250 mg PO Q6 [facility] Last Admin: 04/09/18 12:18 Dose: 250 mg Documented by: Medical - PN: A/P - Time Spent With Patient Total time spent is greater than 50% in coordination of care (as documented) at patient's floor/unit and/or counseling patient: - Narrative A/P Narrative: A/P Acute renal failure -due to volume depletion secondary to cdiff diarrhea -continue IVF -nephrology following, pt improving NOn agion gap metabolic acidosis -On iv bicarb, monitor Cdiff colitis, diarrhea -on PO vancomycin 250 q6 colon cancer s/p Surgery -outpatient follow up CLL -no concern for tumor lysis syndrome by Oncologist, monitor, s/p Pacemaker HTN -bp stable, hold home bp meds Hyperkalemia -resolved DVT hep sq Diet Renal Full code. Medical - PN: Qual - VTE Deep Vein Thrombosis/Pulmonary Embolism Present on Admission: No
--- NOTE | 2018-04-09 14:47 | Internal Med Progress Note ---
Medical - PN: Subj Patient information: Note initiated : 04/09/18 at 2:39 pm Service Date, if different from initiated Date: [] Patient: Abdiel Cooley 82 y/o M admitted on 04/08/18 for Urinary Retention. Chief Complaint: [] Interval history: Mr. Coolye is a 82 year old M who had colon cancer surgery 2 weeks ago, was at a rehab center for a week and then home for a week, comes to this hospital for evaluation of weakness, dizziness, not making much urine. The patient had colon cancer surgery done, I believe he had a cancerous adenomatous polyp without any metastases. The surgery went well, postoperatively the patient notes he was doing well for a few days and then his condition started to worsen, he has had decreased appetite and decreased oral intake, he is not been eating well, he has had nausea as well as diarrhea. He notes the diarrhea may have been going throughout the perioperative. The patient after going home his condition continued to worsen, notes that he has been getting progressively dizzy and fatigued, does not remember when he passed a good bladder full of urine, given his progressive weakness he came to the hospital for further evaluation. In the emergency room on presentation patient was hemodynamically stable, labs showed WBC count of 82,900, was 20,500 during surgery 2 weeks ago, hemoglobin 12.4 platelets 164. Patient does have history of CLL. Lactic acid is less than 0.2, phosphorus 7.3 uric acid 8.9, LDH 251, calcium 10.3, sodium 164 potassium 6.4 bicarbonate 12 creatinine 3.5 BUN 115 glucose 109 peripheral smear done shows mature lymphocytes no blast cells noted. Given sudden worsening in the patient's WBC count as well as presentation as oliguric renal failure with hyperkalemia hyperphosphatemia and also some elevation in uric acid. Oncologist aviation technical systems specialist Dr Tavarez was consulted on this patient by the ED who did not feel that the patient needed to be transferred to [facility] for further evaluation. I also spoke with Dr. Jefferson as well as Dr. Peng who is the patient's primary oncologist. I expressed my concern for possible tumor lysis syndrome in this patient, Dr. Peng noted that he did not felt the patient has tumor lysis syndrome at this time. Mostly his WBC count is reactive in nature. Patient is being admitted to the hospital for further management Dr. Mallory the basket turner has already evaluated the patient. 04/09 Pt seen examined, no acute overnight issues, tolerating po diet well, still has diarrhea cdiff is positive, on po vanco making urine, wbc trending down, renal function better, K is normal 04/10 - Constitutional Vitals: Vital Signs Temp Pulse Resp BP Pulse Ox 97.3 F 68 15 106/43 98 04/09/18 12:01 04/09/18 08:08 04/09/18 13:20 04/09/18 13:00 04/09/18 12:01 Period Temp Pulse Resp BP Sys/Pinedo Pulse Ox Last 24 Hr 96.7 F-98.8 F 59-75 10-23 79-117/41-67 98-100 Intake and Output 04/09/18 04/09/18 04/09/18 05:59 13:59 21:59 Intake Total 360 120 Output Total 1690 460 Balance -1330 -340 Weight 75.387 kg Patient Weight 04/10/18 05:59 Weight 75.387 kg Intake & Output: Intake & Output 04/09/18 04/09/18 04/09/18 05:59 13:59 21:59 Intake Total 360 120 Output Total 1690 460 Balance -1330 -340 Weight 75.387 kg Intake: Oral 360 120 Output: Urine Catheter Amount 590 460 Stool 1100 Other: Meal Breakfast Percent of Meal Consumed 100% Feeding Ability Assist with Tray Set Up Urine Appearance Clear Clear Uretheral (Mojica) Clear Clear Urine Color Bright Yellow Pale Uretheral (Mojica) Bright Yellow Pale Stool Size Copious Moderate Stool Color Brown Brown Green Yellow Stool Consistency Liquid Liquid Watery # Bowel Movements 1 Exam: General: Alert, Awake, No acute Distress Eyes/N/T: EOMI, Head/Neck: neck supple, CV: RRR, No murmurs, Pulm: Clear b/l, no wheezing/rhonchi/rales Abd: soft, nontender, +BS x4 Ext: no clubbing/cyanosis/edema Neuro: Alert, no focal deficits, moves all extremities, Skin: warm/dry Medical - PN: Obj Da - Labs CBC & Chem 7: 04/09/18 03:35 04/09/18 03:35 Labs: Abnormal Lab Results 04/09/18 04/09/18 04/08/18 03:35 03:35 17:55 WBC 48.9 H* RBC 3.70 L Hgb 9.9 L Hct 30.8 L POC Hct MCHC RDW 19.5 H Plt Count 122 L Gran % 6.5 L Lymph % (Auto) 90.5 H Lymph # (Auto) 44.3 H [place] # (Auto) 1.4 H Seg Neutrophils % Lymphocytes % RBC Morphology Anisocytosis Ovalocytes VBG Lactic Acid POC Sodium Sodium 131 L POC Potassium Potassium 5.3 H POC Chloride Carbon Dioxide 16 L 15 L POC Total CO2 POC BUN BUN 105 H* 109 H* Creatinine 2.6 H 3.0 H POC Creatinine Glucose 118 H 157 H POC Glucose Uric Acid 8.1 H 8.4 H POC WB Ioniz Calcium Phosphorus 5.1 H 5.8 H Lactate Dehydrogenase Total Protein 5.5 L Globulin 1.8 L Triglycerides 196 H 209 H 04/08/18 04/08/18 04/08/18 11:52 11:45 10:55 WBC RBC Hgb Hct POC Hct 38.0 L MCHC RDW Plt Count Gran % Lymph % (Auto) Lymph # (Auto) [place] # (Auto) Seg Neutrophils % Lymphocytes % RBC Morphology Anisocytosis Ovalocytes VBG Lactic Acid < 0.2 L POC Sodium 131 L Sodium 128 L POC Potassium 6.0 H* Potassium 6.4 H* POC Chloride 109 H Carbon Dioxide 12 L POC Total CO2 13 L POC BUN 119 H* BUN 115 H* Creatinine 3.5 H POC Creatinine 3.9 H Glucose 109 H POC Glucose 108 H Uric Acid POC WB Ioniz Calcium 1.45 H Phosphorus Lactate Dehydrogenase 251 H Total Protein Globulin Triglycerides 04/08/18 04/08/18 04/08/18 10:55 10:53 10:53 WBC 83.9 H* RBC Hgb 12.4 L Hct 40.3 L POC Hct MCHC 30.9 L RDW 19.9 H Plt Count Gran % 9.0 L Lymph % (Auto) 80.3 H Lymph # (Auto) 67.4 H [place] # (Auto) 8.8 H Seg Neutrophils % Lymphocytes % RBC Morphology Anisocytosis Ovalocytes VBG Lactic Acid POC Sodium Sodium POC Potassium Potassium POC Chloride Carbon Dioxide POC Total CO2 POC BUN BUN Creatinine POC Creatinine Glucose POC Glucose Uric Acid 8.9 H POC WB Ioniz Calcium Phosphorus 7.3 H* Lactate Dehydrogenase Total Protein Globulin Triglycerides 04/08/18 10:53 WBC RBC Hgb Hct POC Hct MCHC RDW Plt Count Gran % Lymph % (Auto) Lymph # (Auto) [place] # (Auto) Seg Neutrophils % 7 L Lymphocytes % 90 H RBC Morphology Abnorm A Anisocytosis 1+ A Ovalocytes 1+ A VBG Lactic Acid POC Sodium Sodium POC Potassium Potassium POC Chloride Carbon Dioxide POC Total CO2 POC BUN BUN Creatinine POC Creatinine Glucose POC Glucose Uric Acid POC WB Ioniz Calcium Phosphorus Lactate Dehydrogenase Total Protein Globulin Triglycerides Meds: Medications Acetaminophen (Tylenol) 650 mg PO Q4-6HP PRN PRN Reason: PAIN/FEVER > 101 Last Admin: 04/08/18 18:01 Dose: 650 mg Documented by: Allopurinol (Zyloprim) 100 mg PO [facility] Last Admin: 04/08/18 20:24 Dose: 100 mg Documented by: Ferrous Sulfate (Ferrous Sulfate) 325 mg PO [facility] Last Admin: 04/09/18 09:14 Dose: 325 mg Documented by: Heparin Sodium (Porcine) (Heparin) 5,000 unit SQ Q12 [facility] Last Admin: 04/09/18 09:14 Dose: 5,000 unit Documented by: Sodium Bicarbonate 150 meq/ (Dextrose) 1,000 mls @ 100 mls/hr IV Q20H [facility] Last Admin: 04/09/18 09:14 Dose: 100 mls/hr Documented by: Iron Carb/Multivit/[place]/Folic Acid (Multivitamin W/Minerals) 1 tab PO DAILY [facility] Last Admin: 04/09/18 09:14 Dose: 1 tab Documented by: Levothyroxine Sodium (Synthroid) 100 mcg PO ACB [facility] Last Admin: 04/09/18 09:13 Dose: 100 mcg Documented by: Naloxone HCl (Narcan) 0.1 mg IV Q2MIN PRN PRN Reason: Opiate Reversal Ondansetron HCl (Zofran) 4 mg IV Q4-6HP PRN PRN Reason: Nausea And Vomiting Brimonidine Tartrate /Timolol [Combigan 0 .2%-0.5%] Ophthalmic Solution 1 dose OU Q12H [facility] Last Admin: 04/09/18 09:14 Dose: Not Given Documented by: Diphenhydramine Hcl/Zinc Acet [Gs Itch Relief Cream] 1 dose TOPICAL DAILYP PRN PRN Reason: Rash Sodium Chloride (Saline Flush) 10 ml IV Q8 [facility] Last Admin: 04/09/18 05:44 Dose: 10 ml Documented by: Vancomycin HCl (Vancomycin Oral Jazmyn) 250 mg PO Q6 [facility] Last Admin: 04/09/18 12:18 Dose: 250 mg Documented by: Medical - PN: A/P - Time Spent With Patient Total time spent is greater than 50% in coordination of care (as documented) at patient's floor/unit and/or counseling patient: - Narrative A/P Narrative: A: *CHANTAL on CKD III: Prerenal/diarrhea/ACEI -improving *Non-AG Acidosis: 2/2 above, improving *C. difficile colitis: *CLL: Follows with Dr. Peng, case was discussed with him *Hyperkalemia: resolved *Colon CA s/p transverse colectomy with primary anastomosis 03/16/[address] Olivo @[facility] -f/u outpt *h/o PPM placement: *Hypothyroidism: P: -IVF's -Neurology following, on bicarb drip -PO. Vanco -ACEI/BB held for now - - -pt/ot -ppx: heparin Medical - PN: Qual - VTE Deep Vein Thrombosis/Pulmonary Embolism Present on Admission: No
[2018-04-09] MEDS: DEXTROSE 5%-LR 1,000 ML IV SCH (18:27)
[2018-04-09] MEDS: ACETAMINOPHEN 325 MG TABLET PO PRN (19:18)
[2018-04-09] MEDS: ALLOPURINOL 100 MG TABLET PO SCH (20:42)
[2018-04-10] MEDS ORDERED: SODIUM BICARBONATE 50 MEQ/50 ML VIAL ONE (05:15)
[2018-04-10] MEDS: SODIUM BICARBONATE VIAL 150 MEQ in DEXTROSE 5% IN WATER 850 ML IV SCH ×2 (05:25→18:07)
[2018-04-10] MEDS: 0.9 % SODIUM CHLORIDE 10 ML SYRINGE IV SCH ×3 (05:25→20:56)
[2018-04-10] MEDS: VANCOMYCIN ORAL SOL 1,000 MG/10 ML BOTTLE PO SCH ×3 (05:26→19:58)
[2018-04-10 06:38] LABS: ALT/SGPT 18 U/l (0-40); Albumin 3.5 gm/dL (3.2-5.2); Albumin/Globulin Ratio 1.9 (1.0-2.3); Alkaline Phosphatase 69 U/L (39-117); Bilirubin,Direct < 0.2 mg/dL (0.0-0.3); Blood Urea Nitrogen 68 mg/dl (8-23); Gamma Glutamyl Transpeptidase 11 U/L (8-61)
[2018-04-10 06:44] LABS: Basophils # (Auto) 0 K/mcL (0.0-0.3); Basophils % (Auto) 0.1 % (0.0-2.0); Eosinophils # (Auto) 0.1 K/mcL (0.0-0.7); Eosinophils % (Auto) 0.2 % (0.0-7.0); Granulocytes % (Auto) 6.8 % (38.0-78.0); Lymphocytes # (Auto) 30.6 K/mcL (1.5-4.8); Lymphocytes % (Auto) 85.8 % (15.5-49.0); Mean Cell Volume 84.5 fL (80.0-100.0); Monocytes # (Auto) 2.5 K/mcL (0.1-0.9); Monocytes % (Auto) 7.1 % (1.0-12.0); Platelet Count 99 K/mcL (140-440); RBC 3.39 M/mcL (4.50-5.90); Red Cell Distribution Width 19.5 % (11.5-14.5)
--- NOTE | 2018-04-10 07:11 | Nephrology Progress Note ---
Subjective Patient information: Note initiated : 04/10/18 at 7:09 am Patient: Abdiel Cooley 82 y/o M admitted on 04/08/18 for Urinary Retention. Chief Complaint: Weakness Principal diagnosis: Acute kidney injury Pertinent ROS: Weakness No chest pain No abdominal pain No hematuria Objective - Vital Signs Vital signs: Vital Signs Temp Pulse Pulse Resp BP BP Pulse Ox 04/10/18 06:01 61 16 120/47 99 04/10/18 04:01 97.0 F 60 20 130/56 98 04/10/18 02:01 97.2 F 60 16 121/44 98 04/10/18 00:01 97.2 F 61 18 122/54 100 04/09/18 22:01 96.8 F L 65 125/47 99 04/09/18 21:46 63 100 04/09/18 20:01 98.2 F 60 17 115/37 100 04/09/18 19:44 100 04/09/18 19:02 69 18 135/54 100 04/09/18 18:24 61 14 100 04/09/18 18:01 62 16 122/39 98 04/09/18 17:29 97.3 F 04/09/18 17:27 59 L 14 100 04/09/18 17:01 63 14 114/73 100 04/09/18 16:01 18 115/49 04/09/18 16:00 98.0 F 63 19 115/49 100 04/09/18 15:32 17 04/09/18 15:00 17 130/47 04/09/18 14:01 59 L 18 100/53 99 04/09/18 14:00 99 04/09/18 13:20 15 04/09/18 13:00 16 106/43 04/09/18 12:01 97.3 F 17 101/53 98 04/09/18 11:46 23 H 04/09/18 11:01 16 99/49 04/09/18 10:31 16 100/44 04/09/18 10:16 17 100/43 04/09/18 10:03 18 98/47 04/09/18 10:01 15 79/51 98 04/09/18 09:46 18 97/41 04/09/18 09:37 13 104/48 99 04/09/18 08:22 19 04/09/18 08:17 98.8 F 18 102/54 04/09/18 08:08 68 10 L 87/59 98 04/09/18 08:01 59 L 15 90/45 98 04/09/18 07:53 100 Intake and Output 04/09/18 04/10/18 04/10/18 21:59 05:59 13:59 Intake Total 1385 1360 Output Total 650 1230 Balance 735 130 Intake: IV 985 1000 Sodium Bicarbonate Vial 150 Meq 985 1000 In Dextrose 5% in Water 850 ml @ 100 mls/hr IV Q20H [facility] Rx#: [id number] Oral 400 360 Output: Urine Catheter Amount 620 1230 Stool 30 Other: Urine Appearance Clear Clear Uretheral (Mojica) Clear Clear Urine Color Bright Yellow Bright Yellow Uretheral (Mojica) Bright Yellow Bright Yellow Urine Odor Normal Stool Size Small Moderate Stool Color Brown Green Green Stool Consistency Liquid Soft Watery Loose Loose # Bowel Movements 1 1 Weight 169 lb 1.6 oz Intake & Output: Intake & Output 04/09/18 04/10/18 04/10/18 21:59 05:59 13:59 Intake Total 1385 1360 Output Total 650 1230 Balance 735 130 Weight 169 lb 1.6 oz Intake: IV 985 1000 Sodium Bicarbonate Vial 150 Meq 985 1000 In Dextrose 5% in Water 850 ml @ 100 mls/hr IV Q20H [facility] Rx#: [id number] Oral 400 360 Output: Urine Catheter Amount 620 1230 Stool 30 Other: Urine Appearance Clear Clear Uretheral (Mojica) Clear Clear Urine Color Bright Yellow Bright Yellow Uretheral (Mojica) Bright Yellow Bright Yellow Urine Odor Normal Stool Size Small Moderate Stool Color Brown Green Green Stool Consistency Liquid Soft Watery Loose Loose # Bowel Movements 1 1 - General Appearance General appearance: appears started age, fatigue EENT: mucous membranes moist Neck: supple Respiratory: clear Cardiology: no edema Gastrointestinal: no tenderness Integumentary: warm and dry Neurologic: no focal deficit, alert and oriented x3 Musculoskeletal: no deformities Psychiatric: mood/affect appropriate, cooperative - Lab 04/10/18 03:40 04/10/18 03:40 Most recent lab results Calcium 9.0 mg/dl (8.6-10.4) 04/10/18 03:40 Phosphorus 2.7 mg/dL (2.7-4.5) 04/10/18 03:40 Magnesium 1.6 mg/dL (1.6-2.5) 04/10/18 03:40 Assessment and Plan (1) Acute on chronic renal failure Abdiel Cooley is an 82-year-old male with coronary artery disease by calcifications on CT, hypertension, chronic lymphocytic leukemia and colon cancer s/p recent surgery presented to ED on 04/08/18 for decreased urination. Nephrology consultation was requested for acute kidney injury. Acute kidney injury on chronic kidney disease stage 3 with initial hyperkalemia, metabolic acidosis and hyponatremia, likely associated with dehydration associated with ACEI and diuretics, present on arrival. Work up: Renal US on 04/08/18: Mildly echogenic renal parenchyma bilaterally which may be seen with chronic medical renal disease. Splenomegaly which has remained stable since a prior abdomen CT done on 12/18/17. Urinalysis on 04/08/18: Yellow, Clear, pH 6.0, SG 1.014, protein negative, occult blood negative, leukocyte esterase negative. Previous work up: CT Abdomen and Pelvis without contrast on 12/18/17: Small cysts in both kidneys are stable no significant renal abnormality. Progress: Urine output: 2310 ml reported in the past 16 hours. Serum creatinine decreased from 2.6 to 1.5 in the past 16 hours. Metabolic acidosis, resolved. Hyponatremia, resolved. Hyperkalemia, resolved. Recommendations: No need for acute hemodialysis. Nephrology will sign off. Status: Acute Priority: High Qualifiers: Acute renal failure type: unspecified Chronic kidney disease stage: stage 3 (moderate) Qualified Code(s): N17.9 - Acute kidney failure, unspecified; N18.3 - Chronic kidney disease, stage 3 (moderate)
[2018-04-10] MEDS ORDERED: SODIUM BICARBONATE VIAL 150 MEQ in DEXTROSE 5% IN WATER 850 ML IV SCH ×2 (07:49→18:00)
--- NOTE | 2018-04-10 07:49 | Internal Med Progress Note ---
Medical - PN: Subj Patient information: Note initiated : 04/10/18 at 7:43 am Service Date, if different from initiated Date: [] Patient: Abdiel Cooley 82 y/o M admitted on 04/08/18 for Urinary Retention. Chief Complaint: [] Interval history: Mr. Cooley is a 82 year old M who had colon cancer surgery 2 weeks ago, was at a rehab center for a week and then home for a week, comes to this hospital for evaluation of weakness, dizziness, not making much urine. The patient had colon cancer surgery done, I believe he had a cancerous adenomatous polyp without any metastases. The surgery went well, postoperatively the patient notes he was doing well for a few days and then his condition started to worsen, he has had decreased appetite and decreased oral intake, he is not been eating well, he has had nausea as well as diarrhea. He notes the diarrhea may have been going throughout the perioperative. The patient after going home his condition continued to worsen, notes that he has been getting progressively dizzy and fatigued, does not remember when he passed a good bladder full of urine, given his progressive weakness he came to the hospital for further evaluation. In the emergency room on presentation patient was hemodynamically stable, labs showed WBC count of 82,900, was 20,500 during surgery 2 weeks ago, hemoglobin 12.4 platelets 164. Patient does have history of CLL. Lactic acid is less than 0.2, phosphorus 7.3 uric acid 8.9, LDH 251, calcium 10.3, sodium 164 potassium 6.4 bicarbonate 12 creatinine 3.5 BUN 115 glucose 109 peripheral smear done shows mature lymphocytes no blast cells noted. Given sudden worsening in the patient's WBC count as well as presentation as oliguric renal failure with hyperkalemia hyperphosphatemia and also some elevation in uric acid. Oncologist transcription typist Dr Tavarez was consulted on this patient by the ED who did not feel that the patient needed to be transferred to [facility] for further evaluation. I also spoke with Dr. Jefferson as well as Dr. Peng who is the patient's primary oncologist. I expressed my concern for possible tumor lysis syndrome in this patient, Dr. Peng noted that he did not felt the patient has tumor lysis syndrome at this time. Mostly his WBC count is reactive in nature. Patient is being admitted to the hospital for further management Dr. Mallory the customer solutions representative has already evaluated the patient. 04/09 Pt seen examined, no acute overnight issues, tolerating po diet well, still has diarrhea cdiff is positive, on po vanco making urine, wbc trending down, renal function better, K is normal 04/10 Slept well. No overnight events. No new complaints. Still has some mild abdominal discomfort but not concerning. Diarrhea is improving renal function improved. Review of Systems: denies headache/fever/chills/nausea/vomiting/chest pain/cough/dyspnea. Otherwise see above. - Constitutional Vitals: Vital Signs Temp Pulse Resp BP Pulse Ox 97.0 F 61 16 120/47 99 04/10/18 04:01 04/10/18 06:01 04/10/18 06:01 04/10/18 06:01 04/10/18 06:01 Period Temp Pulse Resp BP Sys/Pinedo Pulse Ox Last 24 Hr 96.8 F-98.8 F 59-69 10-23 79-135/37-73 98-100 Intake and Output 04/09/18 04/10/18 04/10/18 21:59 05:59 13:59 Intake Total 1385 1360 Output Total 650 1230 Balance 735 130 Weight 76.702 kg Intake & Output: Intake & Output 04/09/18 04/10/18 04/10/18 21:59 05:59 13:59 Intake Total 1385 1360 Output Total 650 1230 Balance 735 130 Weight 76.702 kg Intake: IV 985 1000 Sodium Bicarbonate Vial 150 Meq 985 1000 In Dextrose 5% in Water 850 ml @ 100 mls/hr IV Q20H [facility] Rx#: [id number] Oral 400 360 Output: Urine Catheter Amount 620 1230 Stool 30 Other: Urine Appearance Clear Clear Uretheral (Mojica) Clear Clear Urine Color Bright Yellow Bright Yellow Uretheral (Mojica) Bright Yellow Bright Yellow Urine Odor Normal Stool Size Small Moderate Stool Color Brown Green Green Stool Consistency Liquid Soft Watery Loose Loose # Bowel Movements 1 1 Exam: General: Alert, Awake, No acute Distress Eyes/N/T: EOMI, Head/Neck: neck supple, CV: RRR, No murmurs, Pulm: Clear b/l, no wheezing/rhonchi/rales Abd: soft, nontender, +BS x4 Ext: no clubbing/cyanosis/edema Neuro: Alert, no focal deficits, moves all extremities, Skin: warm/dry Medical - PN: Obj Da - Labs CBC & Chem 7: 04/10/18 03:40 04/10/18 03:40 Labs: Abnormal Lab Results 04/10/18 04/10/18 04/09/18 03:40 03:40 03:35 WBC 35.7 H* RBC 3.39 L Hgb 9.2 L Hct 28.7 L POC Hct MCHC RDW 19.5 H Plt Count 99 L Gran % 6.8 L Lymph % (Auto) 85.8 H Lymph # (Auto) 30.6 H Fleming # (Auto) 2.5 H Seg Neutrophils % Lymphocytes % RBC Morphology Anisocytosis Ovalocytes VBG Lactic Acid POC Sodium Sodium POC Potassium Potassium POC Chloride Carbon Dioxide 16 L POC Total CO2 POC BUN BUN 68 H 105 H* Creatinine 1.5 H 2.6 H POC Creatinine Glucose 115 H 118 H POC Glucose Uric Acid 8.1 H POC WB Ioniz Calcium Phosphorus 5.1 H Lactate Dehydrogenase Total Protein 5.3 L 5.5 L Globulin 1.8 L 1.8 L Triglycerides 221 H 196 H 04/09/18 04/08/18 04/08/18 03:35 17:55 11:52 WBC 48.9 H* RBC 3.70 L Hgb 9.9 L Hct 30.8 L POC Hct MCHC RDW 19.5 H Plt Count 122 L Gran % 6.5 L Lymph % (Auto) 90.5 H Lymph # (Auto) 44.3 H Fleming # (Auto) 1.4 H Seg Neutrophils % Lymphocytes % RBC Morphology Anisocytosis Ovalocytes VBG Lactic Acid POC Sodium Sodium 131 L POC Potassium Potassium 5.3 H POC Chloride Carbon Dioxide 15 L POC Total CO2 POC BUN BUN 109 H* Creatinine 3.0 H POC Creatinine Glucose 157 H POC Glucose Uric Acid 8.4 H POC WB Ioniz Calcium Phosphorus 5.8 H Lactate Dehydrogenase 251 H Total Protein Globulin Triglycerides 209 H 04/08/18 04/08/18 04/08/18 11:45 10:55 10:55 WBC 83.9 H* RBC Hgb 12.4 L Hct 40.3 L POC Hct 38.0 L MCHC 30.9 L RDW 19.9 H Plt Count Gran % 9.0 L Lymph % (Auto) 80.3 H Lymph # (Auto) 67.4 H Fleming # (Auto) 8.8 H Seg Neutrophils % Lymphocytes % RBC Morphology Anisocytosis Ovalocytes VBG Lactic Acid < 0.2 L POC Sodium 131 L Sodium 128 L POC Potassium 6.0 H* Potassium 6.4 H* POC Chloride 109 H Carbon Dioxide 12 L POC Total CO2 13 L POC BUN 119 H* BUN 115 H* Creatinine 3.5 H POC Creatinine 3.9 H Glucose 109 H POC Glucose 108 H Uric Acid POC WB Ioniz Calcium 1.45 H Phosphorus Lactate Dehydrogenase Total Protein Globulin Triglycerides 04/08/18 04/08/18 04/08/18 10:53 10:53 10:53 WBC RBC Hgb Hct POC Hct MCHC RDW Plt Count Gran % Lymph % (Auto) Lymph # (Auto) Fleming # (Auto) Seg Neutrophils % 7 L Lymphocytes % 90 H RBC Morphology Abnorm A Anisocytosis 1+ A Ovalocytes 1+ A VBG Lactic Acid POC Sodium Sodium POC Potassium Potassium POC Chloride Carbon Dioxide POC Total CO2 POC BUN BUN Creatinine POC Creatinine Glucose POC Glucose Uric Acid 8.9 H POC WB Ioniz Calcium Phosphorus 7.3 H* Lactate Dehydrogenase Total Protein Globulin Triglycerides Meds: Medications Acetaminophen (Tylenol) 650 mg PO Q4-6HP PRN PRN Reason: PAIN/FEVER > 101 Last Admin: 04/09/18 19:18 Dose: 650 mg Documented by: Allopurinol (Zyloprim) 100 mg PO [facility] Last Admin: 04/09/18 20:42 Dose: 100 mg Documented by: Ferrous Sulfate (Ferrous Sulfate) 325 mg PO [facility] Last Admin: 04/09/18 09:14 Dose: 325 mg Documented by: Heparin Sodium (Porcine) (Heparin) 5,000 unit SQ Q12 [facility] Last Admin: 04/09/18 20:42 Dose: 5,000 unit Documented by: Sodium Bicarbonate 150 meq/ (Dextrose) 1,000 mls @ 100 mls/hr IV Q20H [facility] Last Admin: 04/10/18 05:25 Dose: 100 mls/hr Documented by: Iron Carb/Multivit/[place]/Folic Acid (Multivitamin W/Minerals) 1 tab PO DAILY [facility] Last Admin: 04/09/18 09:14 Dose: 1 tab Documented by: Levothyroxine Sodium (Synthroid) 100 mcg PO ACB [facility] Last Admin: 04/09/18 09:13 Dose: 100 mcg Documented by: Naloxone HCl (Narcan) 0.1 mg IV Q2MIN PRN PRN Reason: Opiate Reversal Ondansetron HCl (Zofran) 4 mg IV Q4-6HP PRN PRN Reason: Nausea And Vomiting Brimonidine Tartrate /Timolol [Combigan 0 .2%-0.5%] Ophthalmic Solution 1 dose OU Q12H [facility] Last Admin: 04/09/18 20:42 Dose: Not Given Documented by: Diphenhydramine Hcl/Zinc Acet [Gs Itch Relief Cream] 1 dose TOPICAL DAILYP PRN PRN Reason: Rash Sodium Chloride (Saline Flush) 10 ml IV Q8 [facility] Last Admin: 04/10/18 05:25 Dose: 10 ml Documented by: Vancomycin HCl (Vancomycin Oral Jazmyn) 250 mg PO Q6 [facility] Last Admin: 04/10/18 05:26 Dose: 250 mg Documented by: Medical - PN: A/P - Time Spent With Patient Total time spent is greater than 50% in coordination of care (as documented) at patient's floor/unit and/or counseling patient: - Narrative A/P Narrative: A: *CHANTAL on CKD III: Prerenal/diarrhea/ACEI -improving *Non-AG Acidosis: 2/2 above, improving *C. difficile colitis: *CLL: Follows with Dr. ePng, case was discussed with him *Anemia, chronic: *Hyperkalemia/Hyponatremia: resolved *Colon CA s/p transverse colectomy with primary anastomosis 03/16/[address] Olivo @[facility] -f/u outpt *h/o PPM placement: *Hypothyroidism: *HTN: P: -IVF's -Nephrology following, on bicarb drip -PO Vanco -ACEI/BB held for now, restart BB - -pt/ot -ppx: heparin Medical - PN: Qual - VTE Deep Vein Thrombosis/Pulmonary Embolism Present on Admission: No
[2018-04-10] MEDS: LEVOTHYROXINE 100 MCG TABLET PO SCH (08:12)
[2018-04-10] MEDS: FERROUS SULFATE 325 MG TABLET PO SCH (08:35)
[2018-04-10] MEDS: HEPARIN 5,000 UNIT/ML VIAL SQ SCH ×2 (08:36→08:37)
[2018-04-10] MEDS: MULTIVIT,THER IRON,CA,FA & MIN 1 TABLET PO SCH (08:36)
[2018-04-10] MEDS ORDERED: METOPROLOL SUCCINATE 25 MG TAB.XL.24H PO SCH (09:00)
[2018-04-10] MEDS: BRIMONIDINE TARTRATE OU SCH ×2 (09:31→20:07)
[2018-04-10] MEDS: TIMOLOL OU SCH ×2 (09:31→20:07)
[2018-04-10] MEDS ORDERED: ONDANSETRON 4 MG/2 ML VIAL IV PRN (14:39)
[2018-04-10] MEDS ORDERED: NALOXONE HCL 0.4 MG/ML VIAL IV PRN (14:39)
[2018-04-10] MEDS ORDERED: ZINC ACET TOPICAL PRN (14:39)
[2018-04-10] MEDS ORDERED: ACETAMINOPHEN 325 MG TABLET PO PRN (14:39)
[2018-04-10] MEDS ORDERED: DIPHENHYDRAMINE HCL TOPICAL PRN (14:39)
--- NOTE | 2018-04-10 17:29 | Discharge Summary ---
Medical - DS: Prov Patient information: Note initiated : 04/10/18 at 5:25 pm Service Date, if different from initiated Date: [] Patient: Abdiel Cooley 82 y/o M admitted on 04/08/18 for Urinary Retention. Chief Complaint: [] Date of admission: 04/08/18 14:40 Discharge date: 04/11/18 Primary care physician: Juan Gu Consults: 04/08/18 Consult to Physician [CONS] Stat Comment: Consulting Provider: Rufina Mallory Reason For Exam: Physician to Consult Consult to Physician [CONS] Stat Comment: Consulting Provider: Tanesha Doan Reason For Exam: Physician to Consult Medical - DS: Meds - Discharge Medications Prescriptions: Vancomycin [Vancocin] 250 mg PO QID #32 cap Active and Home Medications: Home Medications Levothyroxine [Synthroid] 100 mcg PO DAILY 08/15/15 [History Confirmed 04/08/18 Last Taken Unknown] Lisinopril [Zestril] 40 mg PO DAILY 08/15/15 [History Confirmed 04/08/18 Last Taken Unknown] Allopurinol [Zyloprim] 100 mg PO HS 04/08/18 [History Confirmed 04/08/18 Last Taken Unknown] Brimonidine Tartrate/Timolol [Combigan Eye Drops] 1 drp BOTH EYES Q12H 04/08/18 [History Confirmed 04/08/18 Last Taken Unknown] Ferrous Sulfate [High Potency Iron] 65 mg PO QDAY 04/08/18 [History Confirmed 04/08/18 Last Taken Unknown] Furosemide [Lasix] 20 mg PO QDAY PRN 04/08/18 [History Confirmed 04/08/18 Last Taken Unknown] Metoprolol Tartrate [Lopressor] 50 mg PO QDAY 04/08/18 [History Confirmed 04/08/18 Last Taken Unknown] Multivit-Min/Iron/Vitamin K [Adult Multivitamin-Iron Tablet] 1 each PO QDAY 04/08/18 [History Confirmed 04/08/18 Last Taken Unknown] Potassium Gluconate 99 mg PO QDAY 04/08/18 [History Confirmed 04/08/18 Last Taken Unknown] Sodium Chloride Nasal [[place] Nasal] 1 spray JOVANA Q12HP 04/08/18 [History Confirmed 04/08/18 Last Taken Unknown] Zinc Acetate [Galzin] 25 mg PO QDAY 04/08/18 [History Confirmed 04/08/18 Last Taken Unknown] amLODIPine [Norvasc] 10 mg PO ONCE 04/08/18 [History Confirmed 04/08/18 Last Taken Unknown] diphenhydrAMINE HCL/ZINC ACET [Itch Relief Cream] 1 gm TP QDAY PRN 04/08/18 [History Confirmed 04/08/18 Last Taken Unknown] Medical - DS: Hosp Hospital course: Mr. Cooley is a 82 year old M who had colon cancer surgery 2 weeks ago, was at a rehab center for a week and then home for a week, comes to this hospital for evaluation of weakness, dizziness, not making much urine. The patient had colon cancer surgery done, I believe he had a cancerous adenomatous polyp without any metastases. The surgery went well, postopera tively the patient notes he was doing well for a few days and then his condition started to worsen, he has had decreased appetite and decreased oral intake, he is not been eating well, he has had nausea as well as diarrhea. He notes the diarrhea may have been going throughout the perioperative. The patient after going home his condition continued to worsen, notes that he has been getting progressively dizzy and fatigued, does not remember when he passed a good bladder full of urine, given his progressive weakness he came to the hospital for further evaluation. In the emergency room on presentation patient was hemodynamically stable, labs showed WBC count of 82,900, was 20,500 during surgery 2 weeks ago, hemoglobin 12.4 platelets 164. Patient does have history of CLL. Lactic acid is less than 0.2, phosphorus 7.3 uric acid 8.9, LDH 251, calcium 10.3, sodium 164 potassium 6.4 bicarbonate 12 creatinine 3.5 BUN 115 glucose 109 peripheral smear done shows mature lymphocytes no blast cells noted. Given sudden worsening in the patient's WBC count as well as presentation as oliguric renal failure with hyperkalemia hyperphosphatemia and also some elevation in uric acid. Oncologist medical front desk specialist Dr Tavarez was consulted on this patient by the ED who did not feel that the patient needed to be transferred to [facility] for further evaluation. I also spoke with Dr. Jefferson as well as Dr. Peng who is the patient's primary oncologist. I expressed my concern for possible tumor lysis syndrome in this patient, Dr. Peng noted that he did not felt the patient has tumor lysis syndrome at this time. Mostly his WBC count is reactive in nature. Patient is being admitted to the hospital for further management Dr. Mallory the cement mason maintenance has already evaluated the patient. 04/09 Pt seen examined, no acute overnight issues, tolerating po diet well, still has diarrhea cdiff is positive, on po vanco making urine, wbc trending down, renal function better, K is normal 04/10 Slept well. No overnight events. No new complaints. Still has some mild abdominal discomfort but not concerning. Diarrhea is improving renal function improved. 04/11 Feeling well, good appetite. Mojica out and urinating on his own. Renal function and diarrhea improved. stable for discharge Discharge diagnosis: Acute kidney injury on chronic diarrhea C. difficile colitis non-anion gap Secondary discharge diagnosis: CLL chronic anemia electrolyte abnormalities history of colon cancer hypertension hypothyroidism - Time Spent with Patient Total time spent providing and/or coordinating discharge services: Greater than 30 minutes Medical - DS: Exam - Constitutional Vitals: Vital Signs Temp Pulse Resp BP BP Pulse Ox 04/10/18 16:00 97.5 F 20 108/60 98 04/10/18 11:48 97.8 F 20 132/56 95 04/10/18 08:01 97.4 F 62 20 135/72 100 04/10/18 06:01 61 16 120/47 99 04/10/18 04:01 97.0 F 60 20 130/56 98 04/10/18 02:01 97.2 F 60 16 121/44 98 04/10/18 00:01 97.2 F 61 18 122/54 100 04/09/18 22:01 96.8 F L 65 125/47 99 04/09/18 21:46 63 100 04/09/18 20:01 98.2 F 60 17 115/37 100 04/09/18 19:44 100 04/09/18 19:02 69 18 135/54 100 04/09/18 18:24 61 14 100 04/09/18 18:01 62 16 122/39 98 04/09/18 17:29 97.3 F 04/09/18 17:27 59 L 14 100 Intake and Output 04/10/18 04/10/18 04/10/18 05:59 13:59 21:59 Intake Total 1360 450 Output Total 1230 800 400 Balance 130 -800 50 Intake: IV 1000 Sodium Bicarbonate Vial 150 Meq 1000 In Dextrose 5% in Water 850 ml @ 100 mls/hr IV Q20H [facility] Rx#: [id number] Oral 360 450 Output: Urine Catheter Amount 1230 800 400 Other: Urine Appearance Clear Clear Clear Uretheral (Mojica) Clear Clear Urine Color Bright Yellow Pale Bright Yellow Uretheral (Mojica) Bright Yellow Pale Urine Odor Normal Stool Size Moderate Moderate Small Stool Color Green Brown Brown Black Green Stool Consistency Soft Loose Soft Loose # Bowel Movements 1 100 1 # of times incontinent of 0 Bowels Weight 77.564 kg Patient Weight 04/11/18 05:59 Weight 77.564 kg Medical - DS: Data Labs on day of discharge: Labs from last 24 hours 04/10/18 04/10/18 03:40 03:40 WBC 35.7 H* RBC 3.39 L Hgb 9.2 L Hct 28.7 L MCV 84.5 MCH 27.0 MCHC 32.0 RDW 19.5 H Plt Count 99 L MPV 8.5 Gran % 6.8 L Lymph % (Auto) 85.8 H Keith % (Auto) 7.1 Eos % (Auto) 0.2 Baso % (Auto) 0.1 Gran # 2.4 Lymph # (Auto) 30.6 H Keith # (Auto) 2.5 H Eos # (Auto) 0.1 Baso # (Auto) 0 Sodium 140 Potassium 4.2 Chloride 103 Carbon Dioxide 25 Anion Gap 12.0 BUN 68 H Creatinine 1.5 H GFR Calculation 42 Glucose 115 H Uric Acid 7.0 Calcium 9.0 Phosphorus 2.7 Magnesium 1.6 Total Bilirubin 0.2 Direct Bilirubin < 0.2 GGT 11 AST 19 ALT 18 Alkaline Phosphatase 69 Lactate Dehydrogenase 185 Total Protein 5.3 L Albumin 3.5 Globulin 1.8 L Albumin/Globulin Ratio 1.9 Triglycerides 221 H Preliminary micro results at discharge 04/08/18 11:50 Blood Culture - Preliminary Blood 04/08/18 11:45 Blood Culture - Preliminary Blood Medical - DS: A/P - Patient/Caregiver Discharge Instructions Activity: increase activity as tolerated Diet: Regular Diet, Renal Prescriptions: Vancomycin [Vancocin] 250 mg PO QID #32 cap - Follow up Plan Follow up with: Juan Gu MD [Primary Care Provider] - Rufina Mallory MD [Physician] - Disposition: Home Health Service Prognosis: Fair Rehab Potential: Fair Medical - DS: Qual - VTE Deep Vein Thrombosis/Pulmonary Embolism Present on Admission: No
[2018-04-10] MEDS ORDERED: HEPARIN 5,000 UNIT/ML VIAL SQ ONE ×2 (21:00)
[2018-04-10] MEDS ORDERED: ALLOPURINOL 100 MG TABLET PO SCH (21:00)
[2018-04-11] MEDS: VANCOMYCIN ORAL SOL 1,000 MG/10 ML BOTTLE PO SCH ×3 (00:33→12:04)
[2018-04-11] MEDS: 0.9 % SODIUM CHLORIDE 10 ML SYRINGE IV SCH (05:54)
[2018-04-11] MEDS: SODIUM BICARBONATE VIAL 150 MEQ in DEXTROSE 5% IN WATER 850 ML IV SCH (05:55)
[2018-04-11] MEDS ORDERED: LEVOTHYROXINE 100 MCG TABLET PO SCH (07:30)
[2018-04-11] MEDS ORDERED: FERROUS SULFATE 325 MG TABLET PO SCH (08:00)
[2018-04-11] MEDS ORDERED: METOPROLOL SUCCINATE 25 MG TAB.XL.24H PO SCH (09:00)
[2018-04-11] MEDS ORDERED: MULTIVIT,THER IRON,CA,FA & MIN 1 TABLET PO SCH (09:00)
[2018-04-11] MEDS ORDERED: ENOXAPARIN 30 MG/0.3 ML SYRINGE SQ SCH ×2 (09:00)
[2018-04-11] MEDS: TIMOLOL OU SCH (09:46)
[2018-04-11] MEDS: BRIMONIDINE TARTRATE OU SCH (09:46)
== END 2018-04-11 12:10 | disposition home health service (06) | DRG 683 ==
LOC: ED 10:36 → ICU 14:40 → MEDSUR 04-10 09:23
PROVIDERS: ADMIT Internal Medicine; ATTEND Internal Medicine